=== PATIENT | female | born 1950 ===

== ENCOUNTER 2016-11-10 13:26 | Emergency (ER) | payer OTHER, MEDICARE ==
[2016-11-10 13:26] VITALS: BMI 22.8
[2016-11-10 13:34] VITALS: PULSE 77; TEMP 98.4
--- NOTE | 2016-11-10 13:52 | ED PDOC ---
Upper Extremity Pain/Injury Time Seen by Provider: 11/10/16 13:40 Chief Complaint (Nursing): Upper Extremity Problem/Injury Chief Complaint (Provider): right shoulder injury History Per: Patient (66 y/o female here for evaluation of right shoulder injury that occurred when she slipped and fell on wet floor at work. Patient noted moderate pain in right shoulder since. States she landed on elbow. No medication taken prior to ED arrival.), Family Past Medical History Reviewed: Historical Data, Nursing Documentation, Vital Signs Vital Signs: Last Vital Signs Temp 98.4 F 11/10/16 13:30 Pulse 77 11/10/16 13:30 Resp 16 11/10/16 13:30 BP 168/75 H 11/10/16 13:30 Pulse Ox 100 11/10/16 13:30 - Medical History PMH: HTN Denies: Chronic Kidney Disease - Family History Family History: States: No Known Family Hx - Immunization History Hx Influenza Vaccination: No Hx Pneumococcal Vaccination: No - Home Medications Home Medications: Ambulatory Orders Medication Instructions Recorded Lisinopril 20 mg PO DAILY 06/10/13 Lisinopril [Zestril] 20 mg PO DAILY #0 tab 06/12/13 metFORMIN [glucOPHAGE] 500 mg PO BID #42 tab 06/12/13 Naproxen [Naprosyn Tab] 375 mg PO Q8 PRN #15 tab 11/10/16 Tramadol HCl [Ultram] 50 mg PO Q8 PRN #8 tablet 11/10/16 - Allergies Allergies/Adverse Reactions: Allergies Allergy/AdvReac Type Severity Reaction Status Date / Time potassium Allergy RASH Verified 11/10/16 13:32 Review of Systems ROS Statement: Except As Marked, All Systems Reviewed And Found Negative Musculoskeletal: Positive for: Shoulder Pain Physical Exam - Reviewed Nursing Documentation Reviewed: Yes Vital Signs Reviewed: Yes - Physical Exam Appears: Positive for: Well, Non-toxic, No Acute Distress Head Exam: Positive for: ATRAUMATIC, NORMAL INSPECTION, NORMOCEPHALIC Skin: Positive for: Normal Color, Warm, DRY Eye Exam: Positive for: EOMI, Normal appearance, PERRL ENT: Positive for: Normal ENT Inspection Neck: Positive for: Normal, Painless ROM Cardiovascular/Chest: Positive for: Regular Rate, Rhythm Respiratory: Positive for: CNT, Normal Breath Sounds Gastrointestinal/Abdominal: Positive for: Normal Exam, Bowel Sounds, Soft Back: Positive for: Normal Inspection Extremity: Positive for: Normal ROM, Tenderness (tenderness along right shoulder region), Swelling (swelling noted distal humerus. Tenderness noted by right elbow.) Neurologic/Psych: Positive for: Alert, Oriented - ECG O2 Sat by Pulse Oximetry: 100 - Progress ED Course And Treament: shoulder xry right: neg for fx humerus xry right : neg for fx elbow xry right: neg for fx morphine 1 mg iv x 1 dose zofran 4 mg iv x 1 dose Placed in shoulder sling. Disposition - Clinical Impression Clinical Impression: Elbow contusion, Arm contusion - Patient ED Disposition Is Patient to be Admitted: No - Disposition Disposition: Routine/Home Disposition Time: 15:23 Condition: FAIR Prescriptions: Naproxen [Naprosyn Tab] 375 mg PO Q8 PRN #15 tab PRN Reason: Pain, Severe (8-10) Tramadol HCl [Ultram] 50 mg PO Q8 PRN #8 tablet PRN Reason: Pain, Severe (8-10) Instructions: Elbow Sprain (ED), Contusion in Adults (ED) Forms: [facility] ([place]), [facility] ED School/Work Excuse Print Language: GREEK
--- NOTE | 2016-11-10 14:04 | RAD ---
PROCEDURE: Radiographs of the Right Shoulder HISTORY: shoulder injury COMPARISON: No prior. FINDINGS: BONES: There is diffuse bone demineralization. There is no acute displaced fracture or bone destruction. Bone alignment is normal. 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 The glenohumeral joint is normal. SOFT TISSUES: Normal. OTHER FINDINGS: None. IMPRESSION: No acute fracture or dislocation.
--- NOTE | 2016-11-10 15:23 | RAD ---
PROCEDURE: Radiographs of the right elbow. HISTORY: elbow injury COMPARISON: No prior. FINDINGS: BONES: Bone alignment and mineralization are normal. There is no acute displaced fracture or bone destruction. There is a small olecranon spur. JOINTS: Normal. No osteoarthritis. SOFT TISSUES: There are discrete linear and round calcifications in the posterior soft tissues distal arm. JOINT EFFUSION: None. OTHER FINDINGS: None. IMPRESSION: No acute displaced fracture or dislocation.
--- NOTE | 2016-11-10 15:25 | RAD ---
PROCEDURE: Radiographs of the right humerus. HISTORY: right arm injury COMPARISON: None. FINDINGS: BONES: Bone alignment and mineralization are normal. There is no acute displaced fracture or bone destruction. SOFT TISSUES: There are linear calcifications in the distal arm. OTHER FINDINGS: None. IMPRESSION: No acute fracture or dislocation.
[2016-11-10 15:41] VITALS: BP 132/74; RESP 18; O2SAT 97
== END 2016-11-10 15:45 | disposition home or self-care (01) ==
LOC: H.ER 13:26
DX: S40.029A Contusion of unspecified upper arm, initial encounter (principal); W19.XXXA Unspecified fall, initial encounter; Y99.0 Civilian activity done for income or pay; I10 Essential (primary) hypertension; Z79.84 Long term (current) use of oral hypoglycemic drugs
CPT/HCPCS: 73030; 73060; 73080; 82948; 96374; 96375; 99284; J2270; J2405